=== PATIENT | female | born 1975 | race African-American/Black ===

== ENCOUNTER 2016-08-20 11:59 | Day surgery (SDC) | payer OTHER ==
--- NOTE | ~2016-08-20 | OP ---
Record Of Operation [facility] [address] [place]. [address] NAME: SAIRA CLANCY : 79 STATUS : [facility]#: [id number] AGE: 41 ADM/REG DATE : 08/20/16 MR#: [id number] REPORT SERV DATE: 08/21/16 DICTATED BY: KARIS KATHLEEN III DATE: 08/20/16 REPORT STATUS : Draft TRANSCRIBED BY: MODAman DATE: 08/20/16 DATE OF PROCEDURE: 08/20/2016 PREOPERATIVE DIAGNOSIS: Hallux limitus, left foot. POSTOPERATIVE DIAGNOSIS: Hallux limitus, left foot. PROCEDURE: Arthrodesis of the first metatarsal phalangeal joint, left foot. SURGEON: Karis Kathleen D.P.M. ANESTHESIA: General LMA. HEMOSTASIS: Left pneumatic ankle tourniquet at 250 mmHg for 62 minutes. ESTIMATED BLOOD LOSS: Minimal. MATERIALS: Arthrex first metatarsophalangeal joint with cortical and locking screws with cannulated compression screw, 3-0 Vicryl, 4-0 Vicryl, and 4-0 Prolene. INJECTABLES: 20 mL of 0.5% Marcaine plain. SPECIMEN: None. COMPLICATIONS: None. FINDINGS: Severely arthritic first metatarsophalangeal joint with scar tissue and no cartilage to the first metatarsal. PROCEDURE NOTE: The patient was identified in the preoperative holding area. The appropriate limb for surgery was identified and clearly marked. The patient's vital signs were taken at this time, noted to be stable. The patient was then brought into the operating room and placed on the operating table in the supine position. The patient was then administered general anesthesia via LMA. A well-padded ankle tourniquet was then placed about the patient's left ankle. The left foot was then scrubbed, prepped, and draped in the usual sterile manner. An Esmarch bandage was then used to exsanguinate the patient's left foot and a pneumatic ankle tourniquet was then inflated to a pressure of 250 mmHg. Attention was then directed to the dorsal aspect of first metatarsophalangeal joint, where a linear longitudinal incision was made over the dorsal aspect of the joint, where a previous surgical incision was noted. Incision was deepened to the subcutaneous tissues with care being taken to identify and retract any vital neural and vascular structures. All bleeders were cauterized as necessary. It was noted there was a lot of scar tissue from previous surgeries in the area. A dorsal capsulotomy was performed over the first metatarsophalangeal joint, thus freeing the distal first metatarsal and base of the proximal phalanx from the surrounding soft tissues. It was noted that there was a large amount of Record Of Operation [address] [place]. [address] NAME: SAIRA CLANCY : 79 STATUS : [facility]#: [id number] AGE: 41 ADM/REG DATE : 08/20/16 MR#: [id number] REPORT SERV DATE: 08/21/16 DICTATED BY: KARIS KATHLEEN III DATE: 08/20/16 REPORT STATUS : Draft TRANSCRIBED BY: DENZEL DATE: 08/20/16 adhesions and scar tissue from previous surgeries. Once the joint was identified, it was noted that there was dorsal hypertrophied to both the distal metatarsal and the base of the proximal phalanx. There was very little joint space and there was a loss of cartilage to the distal first metatarsal and base of the proximal phalanx. Once the soft tissue had been freed, a guide pin was then inserted down the shaft of the first metatarsal and a reamer was then used to remove bone down to good subchondral bone. The guide pin was then removed and then inserted into the base of the proximal phalanx and a reamer was then used to remove any cartilaginous bone to subchondral bone. A rongeur was then used to remove any hypertrophied bone in any bone spicules. An Arthrex first metatarsophalangeal joint was then placed over the joint with the hallux placed in the good position and held with temporary fixation. A cortical and locking screws were used as well as a compression screw that was inserted from the medial first metatarsal into the proximal phalanx. Arthroscopy was used to show placement of the guide pin which was noted to be in very good position and a cannulated screw was then inserted. The guide pin was then removed. Any remaining locking screws were then applied to the plate. Fluoroscopy was once again used to assess placement of the internal fixation and position of the hallux, which was noted to be in good position. The wound was irrigated with normal saline. The periosteal and capsular structures were reapproximated using 3-0 Vicryl. The subcutaneous tissues were then reapproximated using 3- 0 Vicryl and 4-0 Vicryl. The skin was reapproximated with 4-0 Prolene using a running interlocking suture technique. Upon completion of the procedure, the patient was given a postoperative block using a total of 20 mL of 0.5% Marcaine plain. Incision was dressed with Xeroform and covered with compressive bandage consisting of 4x4s and Kerlix. The pneumatic ankle tourniquet was then deflated at this time after duration of 62 minutes. There was a prompt hyperemic response noted to the digits of the left foot. An Franki wrap was then applied to the left foot. The patient tolerated the procedure and anesthesia well. The patient was then transferred to the PACU with vital signs stable and vascular status intact to the digits of the left foot. The patient was placed into a Cam Walker boot. Following a period of postoperative monitoring, the patient will be transferred back to day surgery, where she will be discharged home when awake and alert. The patient will be given written and oral postoperative instructions and discharged under the care of her family. LORI/DENZEL Emil Kathleen III, D.P.M. / [id number] CC: Emil Kathleen III, D.P.M.
[~2016-08-20 11:59] MED LIST: BACDS PO; MONODOX100 MG PO; NEUR300 PO; NEUR400 PO; PCET PO; ROXICODONE30 MG PO; SOMATAB PO
[2017-03-12] MEDS ORDERED: PERCOCET 10/3251 TAB PO (10:00)
== END 2016-08-20 20:45 | disposition home or self-care (01) ==
LOC: SDC 11:59
PROVIDERS: Podiatrist Foot & Ankle Surgery
PROC: 0SGN0ZZ (ICD-10-PCS; principal; 2016-08-20 15:00)
DX: M20.5X2 Other deformities of toe(s) (acquired), left foot (principal); F17.210 Nicotine dependence, cigarettes, uncomplicated; K21.9 Gastro-esophageal reflux disease without esophagitis; Z91.040 Latex allergy status; Z88.2 Allergy status to sulfonamides; Z88.1 Allergy status to other antibiotic agents; Z88.5 Allergy status to narcotic agent; Z98.890 Other specified postprocedural states; M19.90 Unspecified osteoarthritis, unspecified site; Z90.49 Acquired absence of other specified parts of digestive tract; Z98.51 Tubal ligation status; Z79.891 Long term (current) use of opiate analgesic; Z79.899 Other long term (current) drug therapy
CPT/HCPCS: 73630-LT; 76000; 84703; A9270-GY; C1713; C1769; J0690; J1170; J2250; J2405; J2550; J3010

== ENCOUNTER 2016-09-23 09:38 | Emergency (ER) | payer OTHER ==
[2017-03-12] MEDS ORDERED: PERCOCET 10/3251 TAB PO (10:00)
== END 2016-09-23 10:09 | disposition home or self-care (01) ==
LOC: ER 09:38
DX: S99.922A Unspecified injury of left foot, initial encounter (principal); X58.XXXA Exposure to other specified factors, initial encounter; F17.200 Nicotine dependence, unspecified, uncomplicated; K21.9 Gastro-esophageal reflux disease without esophagitis; Z90.89 Acquired absence of other organs; Z88.2 Allergy status to sulfonamides; Z88.1 Allergy status to other antibiotic agents; Z91.040 Latex allergy status; Z88.8 Allergy status to other drugs, medicaments and biological substances; Z79.899 Other long term (current) drug therapy
CPT/HCPCS: 73660-LT; 99283

== ENCOUNTER 2016-10-31 13:03 | Day surgery (SDC) | payer OTHER ==
--- NOTE | ~2016-10-31 | OP ---
Record Of Operation [facility] [address] [place]. [address] NAME: SAIRA CLANCY : 79 STATUS : [facility]#: [id number] AGE: 41 ADM/REG DATE : 10/31/16 MR#: [id number] REPORT SERV DATE: 11/01/16 DICTATED BY: KARIS WILKINS III DATE: 10/31/16 REPORT STATUS : Draft TRANSCRIBED BY: DENZEL DATE: 10/31/16 DATE OF PROCEDURE: 10/31/2016 PREOPERATIVE DIAGNOSES: 1. 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 2. Hammertoe contracture deformity fourth digit, right foot. 3. Hammertoe contracture deformity fifth digit, right foot. 4. Superficial skin ulceration to the interdigital space between fourth and fifth digits, right foot. POSTOPERATIVE DIAGNOSES: 1. 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 2. Hammertoe contracture deformity fourth digit, right foot. 3. Hammertoe contracture deformity fifth digit, right foot. 4. Superficial skin ulceration to the interdigital space between fourth and fifth digits, right foot. PROCEDURES: 1. Repair of ligaments to the third metatarsophalangeal joint, right foot with use of tenodesis screws and suture tape via Arthrex. 2. Syndactylization of digits four and five with resection of superficial ulcer to the fourth interdigital space, right foot. SURGEON: Karis Wilkins D.P.M. ANESTHESIA: General LMA. HEMOSTASIS: Right pneumatic ankle tourniquet at 250 mmHg for 63 minutes. ESTIMATED BLOOD LOSS: Minimal. MATERIALS: Arthrex suture tape, 4-0 Vicryl, 4-0 Prolene. INJECTABLES: 20 mL of 0.5% Marcaine plain. SPECIMEN: None. COMPLICATIONS: None. DESCRIPTION OF PROCEDURE: The patient was identified in the preoperative holding area and the appropriate limb for surgery was identified and clearly marked. The patient's vital signs were taken at this time and noted to be stable. The patient was then brought into the operating room and placed on the operating room table in the supine position. A well-padded ankle tourniquet was then placed on the patient's ankle following administration of general anesthesia via LMA. The right foot was then scrubbed, prepped, and draped in the usual sterile manner. An Esmarch bandage was then used to exsanguinate the patient's right foot Record Of Operation [facility] [address] [facility] [place]. [address] NAME: SAIRA CLANCY : 79 STATUS : [facility] PAT#: [id number] AGE: 41 ADM/REG DATE : 10/31/16 MR#: [id number] REPORT SERV DATE: 11/01/16 DICTATED BY: KARIS WILKINS III DATE: 10/31/16 REPORT STATUS : Draft TRANSCRIBED BY: DENZEL DATE: 10/31/16 and was inflated to a pressure of 250 mmHg. Attention was then directed to the dorsal aspect of the third metatarsophalangeal joint where a linear longitudinal incision was made through a prior surgical incision. It was noted that the toe was contracted dorsally. There was a lot of scar tissue and adhesions over the extensor tendon. These adhesions were then freed and a tenotomy was then made into the extensor tendon and then lengthened at this time. The scar tissue around what had been the third metatarsophalangeal joint was then freed of its attachments. A guide pin was then placed through the proximal phalanx as well as the remaining distal aspect of the third metatarsal. A 2/5 drill bit was then used to make a tunnel through the proximal phalanx and distal third metatarsal. The suture tape was then passed through these tunnels and a tenodesis screw was then used to hold the suture tape in place and the toe in a more correct position. The extensor tendon had been lengthened and was then reapproximated using 3-0 Vicryl. The wound was irrigated with normal saline and the subcutaneous tissues were reapproximated using 4-0 Vicryl, and the skin incision was then reapproximated using 4-0 Prolene. Attention was then directed to the fourth interspace between the fourth and fifth digits of the right foot. An ellipse of skin was then removed from the interdigital space and along the medial aspect of the fifth digit and lateral aspect of the fourth digit, which was also removed with a superficial ulceration that was present in the interdigital space. The wound was then irrigated with copious amounts of sterile normal saline. The skin edges at the dorsal aspect of the fourth and fifth digits was then reapproximated using 4-0 Prolene using simple interrupted suture techniques. The skin was then reapproximated to the plantar aspect of the fourth and fifth digits using 4-0 Prolene using interrupted suture techniques. The fourth and fifth digits were then in essence syndactylized removing the interdigital space. Upon completion of the procedure, a postoperative block was then administered into the right foot using a total of 20 mL of 0.5% Marcaine plain. The incisions were dressed with Xeroform and covered with compressive bandage consisting of 4x4s and Timmy. The pneumatic ankle tourniquet was then deflated at this time after a duration of 63 minutes. There was a prompt hyperemic response noted to the digits of the right foot. An Franki wrap was then applied to the right foot. The patient tolerated the procedure and anesthesia well. The patient was then transferred to the PACU with vital signs stable. Following a period of postoperative monitoring, the patient will be discharged home with written and oral postoperative instructions. LORI/DENZEL Emil Wilkins III, D.P.M. / [id number] Record Of Operation [address] [address] NAME: SAIRA CLANCY : 79 STATUS : [facility] PAT#: [id number] AGE: 41 ADM/REG DATE : 10/31/16 MR#: [id number] REPORT SERV DATE: 11/01/16 DICTATED BY: KARIS WILKINS III DATE: 10/31/16 REPORT STATUS : Draft TRANSCRIBED BY: DENZEL DATE: 10/31/16 CC: Emil Wilkins III, D.P.M.
[2017-03-12] MEDS ORDERED: PERCOCET 10/3251 TAB PO (10:00)
== END 2016-10-31 20:45 | disposition home or self-care (01) ==
LOC: SDC 13:03
PROVIDERS: Podiatrist Foot & Ankle Surgery
PROC: 0HQMXZZ Repair Right Foot Skin, External Approach (ICD-10-PCS; principal; 2016-10-31 13:15)
PROC: 0LNV0ZZ Release Right Foot Tendon, Open Approach (ICD-10-PCS; 2016-10-31 13:15)
DX: M24.574 Contracture, right foot (principal); M20.41 Other hammer toe(s) (acquired), right foot; F17.210 Nicotine dependence, cigarettes, uncomplicated; M19.90 Unspecified osteoarthritis, unspecified site; K21.9 Gastro-esophageal reflux disease without esophagitis; Z98.51 Tubal ligation status; Z88.2 Allergy status to sulfonamides; Z88.1 Allergy status to other antibiotic agents; Z88.8 Allergy status to other drugs, medicaments and biological substances; Z82.49 Family history of ischemic heart disease and other diseases of the circulatory system; Z83.3 Family history of diabetes mellitus; Z91.040 Latex allergy status; Z79.891 Long term (current) use of opiate analgesic; Z79.899 Other long term (current) drug therapy; Z90.49 Acquired absence of other specified parts of digestive tract; Z98.890 Other specified postprocedural states
CPT/HCPCS: 76000; 84703; 85014; 85018; A9270-GY; C1713; C1769; J0690; J0735; J1170; J2250; J2270; J2405; J3010